=== PATIENT | female | born 1945 | race Caucasian/White ===

== ENCOUNTER → 2016-05-03 | Outpatient (CLI) | payer MEDICARE, OTHER | LOC: CLAB 11:29 | PROVIDERS: ATTEND Psychiatry & Neurology Psychiatry | DX: F31.9 Bipolar disorder, unspecified (principal); Z79.899 Other long term (current) drug therapy | CPT/HCPCS: 36415; 80164 ==

== ENCOUNTER → 2016-07-27 | Outpatient (CLI) | payer MEDICARE, OTHER ==
[2016-07-27 11:36] LABS: AUTOMATED NEUTROPHIL # 5.9 TH/MM3 (1.8-7.7); BASOPHIL # 0.1 TH/MM3 (0-0.2); EOSINOPHIL # 0.1 TH/MM3 (0-0.4); EOSINOPHIL % 0.6 % (0.0-4.0); HEMATOCRIT 42.8 % (35.0-46.0); HEMO FLAGS DIFF FINAL; LYMPH % 29.8 % (9.0-44.0); LYMPHOCYTE # 2.9 TH/MM3 (1.0-4.8); MEAN CELL VOLUME 89.6 FL (80.0-100.0); MEAN CORPUSCULAR HEMOGLOBIN 31.3 PG (27.0-34.0); MEAN CORPUSCULAR HGB CONC 34.9 % (32.0-36.0); MONO % 7.9 % (0.0-8.0); NEUT % 60.7 % (16.0-70.0); PLATELET COUNT 185 TH/MM3 (150-450); RED BLOOD COUNT 4.77 MIL/MM3 (4.00-5.30); RED CELL DISTRIBUTION WIDTH 14.6 % (11.6-17.2); WHITE BLOOD COUNT 9.7 TH/MM3 (4.0-11.0)
[2016-07-27 11:51] LABS: MICRO ALBUMIN RANDOM URINE RAW 7.3 MG/L (0.0-30.0)
[2016-07-27 12:39] LABS: ALKALINE PHOSPHATASE 72 U/L (45-117); ALT (GPT) 32 U/L (10-53); ANION GAP 11 MEQ/L (5-15); AST (GOT) 28 U/L (15-37); BICARBONATE 26.1 MEQ/L (21.0-32.0); BLOOD UREA NITROGEN 10 MG/DL (7-18); CHLORIDE 100 MEQ/L (98-107); GLOMERULAR FILTRATION RATE 57 ML/MIN (>89); GLUCOSE,FASTING 103 MG/DL (74-99); HDL CHOLESTEROL 41.7 MG/DL (40.0-60.0); LDL CHOLESTEROL 147 MG/DL (0-99); POTASSIUM 3.7 MEQ/L (3.5-5.1); SODIUM (NA) 137 MEQ/L (136-145); TOTAL BILIRUBIN ADULT 0.5 MG/DL (0.2-1.0)
== END ==
LOC: CLAB 11:07
PROVIDERS: ATTEND Internal Medicine
DX: E03.9 Hypothyroidism, unspecified (principal); I10 Essential (primary) hypertension
CPT/HCPCS: 36415; 80053; 80061; 80164; 82043; 84443; 85025

== ENCOUNTER → 2016-12-27 | Outpatient (CLI) | payer MEDICARE, OTHER ==
[2016-12-27 11:31] LABS: AUTOMATED NEUTROPHIL # 4.3 TH/MM3 (1.8-7.7); BASOPHIL # 0.1 TH/MM3 (0-0.2); BASOPHIL % 0.8 % (0.0-2.0); EOSINOPHIL % 0.4 % (0.0-4.0); HEMATOCRIT 41.5 % (35.0-46.0); HEMO FLAGS DIFF FINAL; LYMPH % 33.5 % (9.0-44.0); LYMPHOCYTE # 2.7 TH/MM3 (1.0-4.8); MEAN CELL VOLUME 91.8 FL (80.0-100.0); MEAN CORPUSCULAR HEMOGLOBIN 31.2 PG (27.0-34.0); MONO % 11.1 % (0.0-8.0); NEUT % 54.2 % (16.0-70.0); PLATELET COUNT 146 TH/MM3 (150-450); RED BLOOD COUNT 4.52 MIL/MM3 (4.00-5.30); RED CELL DISTRIBUTION WIDTH 15.3 % (11.6-17.2)
[2016-12-27 12:05] LABS: ALT (GPT) 30 U/L (10-53); ANION GAP 6 MEQ/L (5-15); AST (GOT) 32 U/L (15-37); BICARBONATE 27.7 MEQ/L (21.0-32.0); BLOOD UREA NITROGEN 19 MG/DL (7-18); CHLORIDE 104 MEQ/L (98-107); GLOMERULAR FILTRATION RATE 48 ML/MIN (>89); GLUCOSE,FASTING 105 MG/DL (74-99); POTASSIUM 3.3 MEQ/L (3.5-5.1); SODIUM (NA) 138 MEQ/L (136-145)
[2016-12-27 12:14] LABS: ALKALINE PHOSPHATASE 73 U/L (45-117); FREE T3 1.99 PG/ML (2.18-3.98); FREE T4 1.39 NG/DL (0.76-1.46); TOTAL BILIRUBIN ADULT 0.7 MG/DL (0.2-1.0)
[2016-12-27 16:18] LABS: HEMOGLOBIN A1a 1.4 %; HEMOGLOBIN A1b 0.8 %; HEMOGLOBIN Ao 83.4 %; HEMOGLOBIN F 2.7 %; HEMOGLOBIN LA1C 2.1 %; HEMOGLOBIN P3 3.6 %
== END ==
LOC: CLAB 11:03
PROVIDERS: ATTEND Internal Medicine
DX: E11.9 Type 2 diabetes mellitus without complications (principal); E03.9 Hypothyroidism, unspecified; F31.9 Bipolar disorder, unspecified
CPT/HCPCS: 36415; 80053; 80164; 82306; 83036; 84439; 84443; 84481; 85025

== ENCOUNTER 2017-05-02 13:35 | Inpatient (IN) | payer MEDICARE, OTHER ==
[~2017-05-02] VITALS: Ht 165.1 cm; Wt 75.0 kg
[2017-05-02 13:40] VITALS: BP 174/78; PULSE 96; RESP 16; TEMP 97.9; O2SAT 96
[2017-05-02] MEDS ORDERED: VERA300C PO (13:48)
[2017-05-02] MEDS ORDERED: RISP3TAB2 PO (13:48)
[2017-05-02] MEDS ORDERED: SYMB80AE INH (13:48)
[2017-05-02] MEDS ORDERED: LEVO112T2 PO (13:48)
[2017-05-02] MEDS ORDERED: LOSA50TA2 PO (13:48)
--- NOTE | 2017-05-02 13:53 | PD ---
HPI Chief Complaint: Fall Time Seen by Provider: 13:38 Travel History International Travel<30 days: No Contact w/Intl Traveler<30days: No Traveled to known affect area: No History of Present Illness HPI 71-year-old female that presents to the ED for evaluation of right hip injury. Per patient she fell about a week ago not right hip and she would have some pain but was able to ambulate. Today she had another mechanical fall and landed on her hip and she could not get up without severe pain. She denies any prior injuries. Per patient she had a mechanical fall and no syncope. No head injury. No blood thinners. Normal leg pain. No back pain. It is mostly to the right hip and upper leg. Per patient the pain gets to be 9 out of 10 with weightbearing. Otherwise minimal discomfort. Allergy to penicillin. Has not seen anybody for this. Was brought here by ambulance. PFSH Past Medical History Bipolar Disorder: Yes COPD: Yes Hypertension: Yes Immunizations Current: Yes Thyroid Disease: Yes Influenza Vaccination: Yes ?: Not Past Surgical History Hysterectomy: Yes Social History Alcohol Use: No Tobacco Use: Yes (1 PPD) Substance Use: No Allergies-Medications (Allergen,Severity, Reaction): Coded Allergies: Penicillins (Verified Allergy, Unknown, 05/02/17) Reported Meds & Prescriptions Reported Meds & Active Scripts Active Reported Symbicort Inh (Budesonide/Formoterol Fumarate) 80-4.5 Mcg/Act Aero 2 Puff INH Q12HR Losartan-Hydrochlorothiazide 50-12.5 Mg Tab 1 Tab PO DAILY Levothyroxine (Levothyroxine Sodium) 112 Mcg Tab 112 Mcg PO DAILY Verapamil ER 24 HR (Verapamil HCl) 300 Mg Cap 300 Mg PO DAILY Risperidone 3 Mg Tab 3 Mg PO HS Review of Systems Except as stated in HPI: all other systems reviewed are Neg Physical Exam Narrative GENERAL: SKIN: Warm and dry. HEAD: Atraumatic. Normocephalic. EYES: Pupils equal and round. No scleral icterus. No injection or drainage. ENT: No nasal bleeding or discharge. Mucous membranes pink and moist. Tongue is midline. No uvula deviation. NECK: Trachea midline. No JVD. CARDIOVASCULAR: Regular rate and rhythm. No murmurs, S3, S4. RESPIRATORY: No accessory muscle use. Clear to auscultation. Breath sounds equal bilaterally. GASTROINTESTINAL: Abdomen soft, non-tender, nondistended. Hepatic and splenic margins not palpable. MUSCULOSKELETAL: Extremities without clubbing, cyanosis, or edema. No obvious deformities. Full range of motion of the right and left lower extremities with exception for right hip for which she has pain with extension and flexion. No obvious bony deformity noted. 2+ pulses bilaterally. Neurovascular intact. NEUROLOGICAL: Awake and alert. No obvious cranial nerve deficits. Motor grossly within normal limits. Five out of 5 muscle strength in the arms and legs. Normal speech. PSYCHIATRIC: Appropriate mood and affect; insight and judgment normal. Data Data Last Documented VS Vital Signs Date Time Temp Pulse Resp B/P (MAP) Pulse Ox O2 Delivery O2 Flow Rate FiO2 05/02/17 13:40 97.9 96 16 174/78 (110) 96 Orders Orders Femur (Ap & Lat/2vws) (05/02/17 ) Hip, Uni(Ap&Lat) W Ap Pelvis (05/02/17 ) Chest, Single Ap (05/02/17 ) Electrocardiogram (05/02/17 14:03) Complete Blood Count With Diff (05/02/17 14:03) Basic Metabolic Panel (Bmp) (05/02/17 14:03) Prothrombin Time / Inr (Pt) (05/02/17 14:03) Act Partial Throm Time (Ptt) (05/02/17 14:03) Urinalysis - C+S If Indicated (05/02/17 14:03) Magnesium (Mg) (05/02/17 14:03) Iv Access Insert/Monitor (05/02/17 14:03) Admit Order (Ed Use Only) (05/02/17 14:56) Labs Laboratory Tests Test 05/02/17 14:30 05/02/17 14:40 White Blood Count 12.4 TH/MM3 Red Blood Count 4.84 MIL/MM3 Hemoglobin 14.4 GM/DL Hematocrit 42.7 % Mean Corpuscular Volume 88.2 FL Mean Corpuscular Hemoglobin 29.6 PG Mean Corpuscular Hemoglobin Concent 33.6 % Red Cell Distribution Width 13.5 % Platelet Count 216 TH/MM3 Mean Platelet Volume 8.6 FL Neutrophils (%) (Auto) 76.2 % Lymphocytes (%) (Auto) 16.0 % Monocytes (%) (Auto) 3.6 % Eosinophils (%) (Auto) 0.2 % Basophils (%) (Auto) 4.0 % Neutrophils # (Auto) 9.5 TH/MM3 Lymphocytes # (Auto) 2.0 TH/MM3 Monocytes # (Auto) 0.4 TH/MM3 Eosinophils # (Auto) 0.0 TH/MM3 Basophils # (Auto) 0.5 TH/MM3 CBC Comment DIFF FINAL Differential Comment Prothrombin Time 9.5 SEC Prothromb Time International Ratio 0.9 RATIO Activated Partial Thromboplast Time 23.3 SEC Blood Urea Nitrogen 21 MG/DL Creatinine 0.98 MG/DL Random Glucose 139 MG/DL Calcium Level 9.6 MG/DL Magnesium Level 2.1 MG/DL Sodium Level 137 MEQ/L Potassium Level 3.7 MEQ/L Chloride Level 105 MEQ/L Carbon Dioxide Level 25.2 MEQ/L Anion Gap 7 MEQ/L Estimat Glomerular Filtration Rate 56 ML/MIN Urine Collection Type CLEAN CATCH Urine Color YELLOW Urine Turbidity CLEAR Urine pH 6.0 Urine Specific [place] 1.008 Urine Protein NEG mg/dL Urine Glucose (UA) NEG mg/dL Urine Ketones NEG mg/dL Urine Occult Blood NEG Urine Nitrite NEG Urine Bilirubin NEG Urine Leukocyte Esterase NEG Urine Squamous Epithelial Cells 6-8 /hpf Urine Amorphous Sediment FEW Urine Bacteria RARE /hpf Microscopic Urinalysis Comment CULT NOT INDICATED MDM Medical Decision Making Medical Screen Exam Complete: Yes Emergency Medical Condition: Yes Medical Record Reviewed: Yes Interpretation(s) CBC & BMP Diagram 05/02/17 14:30 Calcium Level 9.6, Magnesium Level 2.1 Last Impressions Hip and Pelvis X-Ray 05/02/17 0000 Signed Impressions: Service Date/Time: May 13:40 - CONCLUSION: Right subcapital hip fracture. Sarthak Ward MD Femur X-Ray 05/02/17 0000 Signed Impressions: Service Date/Time: May 13:40 - CONCLUSION: Right subcapital hip fracture.. Sarthak Ward MD Chest X-Ray 05/02/17 0000 Signed Impressions: Service Date/Time: May 14:11 - CONCLUSION: No acute disease. Efraín Hodges MD EKG shows sinus rhythm with no sign of acute ischemia or arrhythmia read by me and attending. Differential Diagnosis Fracture versus sprain versus strain versus bruise versus contusion Narrative Course 71-year-old female that presents to the ED for evaluation of injury to the right hip. Patient was properly examined and was found to have signs and symptoms concerning for bony injuries. X-rays were ordered. X-rays show fracture of the right hip. Case was discussed with Dr. Valencia from orthopedics who wants the patient to be transferred to the [facility] for surgery possible tonight. Nothing by mouth and admission to medical team. Case was discussed with Is doctor Dr. Cormier who agrees to admission. Patient was made aware of all findings and agrees with plan. Patient was admitted to the [facility]. Diagnosis Primary Impression: Hip fracture, right Qualified Codes: S72.001A - Fracture of unspecified part of neck of right femur, initial encounter for closed fracture Admitting Information Admitting Physician Requests: it Walter Valencia May 02, 2017 13:53
--- NOTE | 2017-05-02 14:06 | RADRPT ---
EXAM DATE/TIME: 05/02/2017 13:40 [facility] COMPARISON: No previous studies available for comparison. INDICATIONS : Fall, right hip pain. MEDICAL HISTORY : None. SURGICAL HISTORY : None. ENCOUNTER: Initial ACUITY: 1 week PAIN SCORE: 6/10 LOCATION: Right hip FINDINGS: AP and lateral views of the right femur were obtained and demonstrate a subcapital hip fracture. The mid and distal femur are intact. There is diffuse osteopenia. No focal soft tissue abnormality is kip ntified. CONCLUSION: Right subcapital hip fracture.. Sarthak Ward MD on May 02, 2017 at 14:02 Board Certified Radiologist. This report was verified electronically.
--- NOTE | 2017-05-02 14:17 | RADRPT ---
EXAM DATE/TIME: 05/02/2017 13:40 [facility] COMPARISON: FEMUR RIGHT (AP & LAT/2VWS), May 02, 2017, 13:40. INDICATIONS : Fall, right hip pain. MEDICAL HISTORY : None. SURGICAL HISTORY : None. ENCOUNTER: Initial ACUITY: 1 week PAIN SCORE: 6/10 LOCATION: Right hip FINDINGS: AP and crosstable lateral views of the left hip were obtained as well as an AP view the pelvis. This again demonstrates a subcapital right hip fracture with mild clockwise rotation of the head component and superior migration of the femur. There is diffuse osteopenia. The pubic rami are intact. No foca l soft tissue abnormalities identified radiographically. CONCLUSION: Right subcapital hip fracture. Sarthak Ward MD on May 02, 2017 at 14:13 Board Certified Radiologist. This report was verified electronically.
--- NOTE | 2017-05-02 14:25 | RADRPT ---
EXAM DATE/TIME: 05/02/2017 14:11 [facility] COMPARISON: No previous studies available for comparison. INDICATIONS : Fall, right hip pain. MEDICAL HISTORY : None. SURGICAL HISTORY : None. ENCOUNTER: Initial ACUITY: 3 days PAIN SCORE: 0/10 LOCATION: Bilateral chest FINDINGS: A single view of the chest demonstrates the lungs to be symmetrically aerated without evidence of mas s, infiltrate or effusion. The cardiomediastinal contours are unremarkable. Osseous structures are intact. CONCLUSION: No acute disease. Efraín Hodges MD on May 02, 2017 at 14:22 Board Certified Radiologist. This report was verified electronically.
[2017-05-02 14:44] LABS: AUTOMATED NEUTROPHIL # 9.5 TH/MM3 (1.8-7.7); BASOPHIL # 0.5 TH/MM3 (0-0.2); EOSINOPHIL % 0.2 % (0.0-4.0); HEMATOCRIT 42.7 % (35.0-46.0); HEMOGLOBIN 14.4 GM/DL (11.6-15.3); MEAN CELL VOLUME 88.2 FL (80.0-100.0); MEAN CORPUSCULAR HEMOGLOBIN 29.6 PG (27.0-34.0); MEAN CORPUSCULAR HGB CONC 33.6 % (32.0-36.0); MEAN PLATELET VOLUME 8.6 FL (7.0-11.0); MONO % 3.6 % (0.0-8.0); MONOCYTE # 0.4 TH/MM3 (0-0.9); NEUT % 76.2 % (16.0-70.0); PLATELET COUNT 216 TH/MM3 (150-450); RED BLOOD COUNT 4.84 MIL/MM3 (4.00-5.30); RED CELL DISTRIBUTION WIDTH 13.5 % (11.6-17.2); WHITE BLOOD COUNT 12.4 TH/MM3 (4.0-11.0)
[2017-05-02 14:49] LABS: CALCIUM 9.6 MG/DL (8.5-10.1)
[2017-05-02 14:50] LABS: BICARBONATE 25.2 MEQ/L (21.0-32.0); MAGNESIUM 2.1 MG/DL (1.5-2.5)
[2017-05-02 14:52] LABS: INTERNATIONAL NORMALIZED RATIO 0.9 RATIO; PROTHROMBIN TIME - PATIENT 9.5 SEC (9.8-11.6)
[2017-05-02 14:53] LABS: CREATININE 0.98 MG/DL (0.50-1.00)
[2017-05-02 14:57] LABS: BILIRUBIN, URINE NEG (NEG); BLOOD, URINE NEG (NEG); GLUCOSE,URINE NEG (NEG); KETONE, URINE NEG (NEG); NITRITE,URINE NEG (NEG); URINE LEUKOCYTE ESTERASE NEG (NEG)
[2017-05-02 15:09] VITALS: BP 119/59; PULSE 88; RESP 16; O2SAT 96
[2017-05-02] MEDS ORDERED: NALOXONE HCL 0.4 MG/ML AMP IV PUSH PRN (15:15)
[2017-05-02] MEDS ORDERED: SODIUM CHLORIDE 0.9% FLUSH 10 ML FLUSH IV FLUSH PRN (15:15)
[2017-05-02 15:16] LABS: BACTERIA, URINE RARE /hpf; URINE COLOR YELLOW (YELLW/STRAW)
[2017-05-02 15:17] LABS: AMORPHOUS SEDIMENT, URINE FEW
[2017-05-02] MEDS: SODIUM CHLOR 0.9% 1000 ML INJ 1,000 ML IV SCH (16:00)
[2017-05-02] MEDS ORDERED: ONDANSETRON HCL 4 MG/2 ML VIAL IVP PRN (16:00)
[2017-05-02] MEDS ORDERED: ACETAMINOPHEN 325 MG TAB PO PRN (16:00)
[2017-05-02] MEDS ORDERED: SENNOSIDES 8.6 MG TAB PO PRN (16:00)
[2017-05-02 16:40] VITALS: BP 136/59; PULSE 81; RESP 16; O2SAT 96
[2017-05-02 17:48] VITALS: BP 128/61
[2017-05-02 19:55] VITALS: BP 120/57; PULSE 74; RESP 18; TEMP 97.4; O2SAT 96
[2017-05-02] MEDS: SODIUM CHLORIDE 0.9% FLUSH 10 ML FLUSH IV FLUSH SCH ×2 (21:00→21:42)
[2017-05-02] MEDS ORDERED: risperiDONE 0.25 MG TAB PO ONE (22:45)
[2017-05-02] MEDS ORDERED: risperiDONE 3 MG TAB PO SCH (23:00)
[2017-05-02] MEDS ORDERED: risperiDONE 3 MG TAB PO ONE (23:15)
[2017-05-02 23:24] VITALS: BP 122/58; PULSE 77; RESP 18; TEMP 98.1; O2SAT 98
[2017-05-03] MEDS: SODIUM CHLOR 0.9% 1000 ML INJ 1,000 ML IV SCH ×3 (02:00→22:00)
[2017-05-03] MEDS ORDERED: LACTATED RINGER'S 1000 ML IV PRN (02:15)
[2017-05-03] MEDS ORDERED: SODIUM CHLORID 0.9% 500 ML IV PRN (02:15)
[2017-05-03] MEDS ORDERED: METOPROLOL TARTRATE 25 MG TAB PO PRN (02:15)
[2017-05-03] MEDS ORDERED: POVIDONE IODINE 5% (ANTISEPSIS KIT) 4 APPLICATIONS EACH NARE PRN (02:15)
[2017-05-03] MEDS ORDERED: CHLORHEXIDINE GLUCONATE 2 % 1 PACK (2 CLOTHS) TOPICAL PRN (02:15)
[2017-05-03] MEDS: LEVOTHYROXINE SODIUM 112 MCG TAB PO SCH (04:53)
[2017-05-03 05:37] VITALS: BP 118/67; PULSE 82; RESP 18; TEMP 96.7; O2SAT 95
[2017-05-03 08:00] VITALS: BP 130/58; PULSE 84; RESP 18; TEMP 96; O2SAT 93
[2017-05-03] MEDS: LOSARTAN 50 MG TAB PO SCH (08:45)
[2017-05-03] MEDS: VERAPAMIL HCL 120 MG SUSTAINED RELEASE TAB PO SCH (08:45)
[2017-05-03] MEDS: VERAPAMIL HCL 180 MG SUSTAINED RELEASE TAB PO SCH (08:45)
[2017-05-03] MEDS: SODIUM CHLORIDE 0.9% FLUSH 10 ML FLUSH IV FLUSH SCH ×2 (08:46→20:52)
[2017-05-03] MEDS: BUDESONIDE-FORMOTEROL 80/4.5 MCG INHALER INH SCH ×2 (08:54→20:52)
[2017-05-03] MEDS: HYDROCHLOROTHIAZIDE 12.5 MG CAP PO SCH (08:54)
[2017-05-03] MEDS ORDERED: NON-FORMULARY DRUG (Losartan-Hydrochlorothiazide 1 TAB) PO SCH (09:00)
[2017-05-03] MEDS ORDERED: TRANEXAMIC ACID INJ 1,125 MG in SODIUM CHLORIDE 0.9% INJ 100 ML IV SCH (10:00)
[2017-05-03] MEDS ORDERED: VANCOMYCIN HCL 1000 MG VIAL ONE (10:46)
[2017-05-03] MEDS ORDERED: ceFAZolin 2 GM PREMIX 50 ML ONE (10:46)
[2017-05-03] MEDS ORDERED: CLINDAMYCIN PHOS 600 MG/4 ML VIAL ONE (10:46)
[2017-05-03] MEDS ORDERED: fentaNYL CITRATE 250 MCG/5 ML AMP ONE (11:57)
[2017-05-03] MEDS ORDERED: LIDOCAINE HCL 1% PF 5 ML SYRINGE OTHER ONE (12:00)
[2017-05-03] MEDS ORDERED: ROCURONIUM INJ 50 MG/5 ML SYRINGE IV PUSH ONE (12:00)
[2017-05-03] MEDS ORDERED: LACTATED RINGER'S 1000 ML INJ 1,000 ML IV ONE (12:00)
[2017-05-03] MEDS ORDERED: PROPOFOL 200 MG/20 ML AMP IV ONE (12:00)
[2017-05-03] MEDS ORDERED: EPINEPHrine HCL (1:1000) 1 MG/ML VIAL IV ONE (12:00)
[2017-05-03] MEDS ORDERED: SUGAMMADEX SODIUM 200 MG/2 ML VIAL IV PUSH ONE (12:00)
[2017-05-03] MEDS ORDERED: ePHEDrine/NS 25 MG/5 ML SYRINGE IV ONE (12:00)
[2017-05-03] MEDS ORDERED: NALOXONE HCL 0.4 MG/ML AMP IV ONE (12:00)
[2017-05-03] MEDS ORDERED: STERILE WATER FOR INJECTION 20 ML VIAL IV ONE (12:00)
[2017-05-03] MEDS ORDERED: ONDANSETRON HCL 4 MG/2 ML VIAL IV ONE (12:00)
[2017-05-03] MEDS ORDERED: PHENYLEPH/NS 1000 MCG/10 ML SYR IV ONE (12:00)
[2017-05-03] MEDS ORDERED: ACETAMINOPHEN/HYDROcodone 325 MG/7.5 MG TAB PO PRN (12:15)
[2017-05-03] MEDS ORDERED: MORPHINE SULFATE 4 MG/ML INJ IV PUSH PRN (12:15)
[2017-05-03] MEDS ORDERED: VASOPRESSIN 20 UNITS/ML VIAL ONE (12:27)
[2017-05-03] MEDS ORDERED: ERGOCALCIFEROL (VIT D2) 50,000 UNIT CAP PO ONE (12:30)
--- NOTE | 2017-05-03 12:41 | MB ---
cc: ESTEVAN TEMPLE DATE OF CONSULTATION 05/03/2017 REASON FOR CONSULTATION Displaced right femoral neck fracture. HISTORY OF PRESENT ILLNESS Taran is a 71-year-old female. She had a mechanical fall yesterday. She landed on her right side. She had immediate right hip pain. She had no dizziness, syncope or loss of consciousness. She was unable to stand or ambulate. She presented to the emergency room where x-rays revealed a displaced right femoral neck fracture. She is currently awake and alert on the orthopedic floor. Her only complaint is her right hip. Pain is worse with movement and is improved with rest. She denies dizziness, syncope or loss of consciousness. PAST MEDICAL HISTORY ILLNESSES 1. Bipolar disorder. 2. COPD. 3. Hypertension. 4. Hypothyroidism. SURGERIES Hysterectomy. ALLERGIES PENICILLIN. MEDICATIONS 1. Symbicort. 2. Hydrochlorothiazide. 3. Levothyroxine. 4. Verapamil. 5. Risperidone. SOCIAL HISTORY The patient denies alcohol or drug use. She smokes a pack a day. FAMILY HISTORY Noncontributory. REVIEW OF SYSTEMS The patient denies headache, visual changes, neck pain, chest pain, shortness of breath, abdominal pain, nausea, vomiting or recent weight loss, fevers or chills, numbness or tingling of extremities, or recent weight loss. She complains of right hip pain. Pain is worse with movement. PHYSICAL EXAMINATION GENERAL: The patient is a pleasant 71-year-old female in no acute distress. She is awake and alert. She is alert and oriented x3. She appears well-developed, well-nourished. VITAL SIGNS: Temperature 96.0, pulse 84, respirations 18, blood pressure 130/58. O2 sat is 92% on room air. HEAD: The patient is normocephalic. Pupils are equal. NECK: Soft, nontender. Trachea is midline. ABDOMEN: Soft, nontender, nondistended. EXTREMITIES: Examination of bilateral upper extremities reveals no pain with shoulder, elbow or wrist motion bilaterally. She has intact sensation in all fingers bilaterally. She has good capillary refill in all fingers. Radial pulses are palpable. Quill Buncher And Sorter strength is +5 bilaterally. Examination of left leg reveals no pain with hip, knee or ankle motion. Skin is intact. Dorsalis pedis pulse is palpable. Sensation is intact. Examination of right leg reveals pain with any hip motion. She is tender to palpation around the proximal femur. She has no tenderness around her knee, tibia or ankle. Calf and thigh compartments are soft. Dorsalis pedis pulse is palpable. Sensation is intact to the right foot. X-RAYS X-rays of the right femur and right hip were reviewed. X-rays reveal a displaced right femoral neck fracture. The patient does appear to have diffuse osteopenia. The pelvic ring is intact. LABORATORY The patient has a white blood cell count of 12.4, hemoglobin 14.4 and hematocrit of 42.7. INR is 0.9. BUN is 21 and creatinine is 0.98. IMPRESSION 1. Hypertension. 2. History of bipolar disorder. 3. Possible osteoporosis. 4. Right femoral neck fracture. PLAN The treatment options were discussed with the patient. At this point I would recommend right hip hemiarthroplasty. X-rays and lab results were reviewed. I will plan on surgery today. Risks of surgery include bleeding, infection, injuries to arteries, nerves and blood vessels, hip dislocation, leg length discrepancy, groin pain, as well as medical complications including blood clot, stroke, heart attack and were discussed. All questions were answered. I will plan on surgery today. A mid-level provider in my office, nurse practitioner or PA, may see this patient on a follow-up basis and continue to implement the objective of this plan including: Starting or adjusting medications, injections of muscle, tendon, bursa or joints, cast application, orthotic or brace application, physical therapy, further radiographic studies including x-ray, MRI, CT, ultrasounds or bone scan, vascular studies, neurologic studies, or other specialist consultations, and proceeding with surgical management as appropriate. MD SUKH Flores/CAMILLE /12:17 PM /12:25 PM
[2017-05-03] MEDS ORDERED: CALCTAB19 PO (12:58)
[2017-05-03] MEDS ORDERED: XARE10TA PO (12:58)
[2017-05-03] MEDS ORDERED: VITA2000 PO (12:58)
[2017-05-03] MEDS ORDERED: WALKER/ADULT/FO1 MIS (12:58)
[2017-05-03] MEDS ORDERED: VITA500012 PO (12:58)
[2017-05-03] MEDS ORDERED: HYDR-3583 PO (12:58)
--- NOTE | 2017-05-03 12:59 | PD.OP ---
cc: Fabricio Rob MD Operative Report Date of Surgery: May 03, 2017 Preoperative Diagnosis: Displaced right femoral neck fracture Postoperative Diagnosis: Procedure: Right hip bipolar hemiarthroplasty Anesthesia: Gen. Surgeon: Fabricio Rob Hvac Services Professional(s): ASHLEY Fontaine PA-C The surgical procedure was assisted by my physician web marketing assistant. My P.A. presence was necessary throughout this case for the manipulation and positioning of the surgical extremity. My P.A. was assisting me throughout the duration of this procedure. The skill set of a physician web marketing assistant was medically necessary to complete this procedure. During the surgical case the plumbing service technician was working at the back table and the physician web marketing assistant was directly assisting me. Operation and Findings: PLAN OF ACTIVITY Weight bear as tolerated. IMPLANTS USED DePuy Corail size [11] stem with size [44] bipolar head and [+1] neck. DRAIN: 7 mm Dick-Pierce drain DETAILS OF PROCEDURE This patient was brought into the operating room and placed on the OR table. The patient was given anesthesia. The patient received IV antibiotics. The patient was then placed in lateral decubitus position. The hip and leg were prepped with alcohol, followed by Hibiclens and draped in a usual sterile fashion. Clean air was used for this procedure. Time out procedure was performed. The procedure began with a 5 inch incision over the posterolateral hip. The subcutaneous tissue was dissected with the Bovie. The iliotibial band were split in line with fibers. The Charnley retractor was placed. The piriformis and external rotators were released from the femur and tagged with a #1 Vicryl suture. The capsule is now incised and tagged with #1 Vicryl. The femoral neck fracture was now visualized. A corkscrew was now used to remove the femoral head. The femoral head was sized and measured. Soft tissue was now protected. The hip skid was placed underneath the femoral neck. An oscillating saw was used to make a femoral neck cut. At this point attention was turned to preparation of the proximal femur. A box osteotome was used to remove the lateral cortex of the femoral neck. The T- handle reamer was used to open the femoral canal. Next, the canal was broached. A lateralizing reamer was used to help lateralize the prosthesis. At this point a trial head and neck were placed. The hip was reduced. The patient was found to have excellent stability with good range of motion. Trial components were removed. Soft tissue and bone were thoroughly irrigated. A Corail stem was now opened. The stem was now impacted into the proximal femur. Care was taken to keep appropriate anteversion. The head and neck were now impacted onto the stem. The hip was again reduced. The hip was found to have good range of motion and good stability. Leg lengths were clinically equal. The wound was thoroughly irrigated. The capsule, piriformis and iliotibial band were closed with #1 Vicryl. Subcutaneous tissue was closed with 3-0 Vicryl. The skin was closed with rosalee. A sterile dressing was applied with Primapore. The patient was placed into a knee immobilizer. The patient was awakened and transferred to the recovery room in stable condition. Needle and sponge counts were correct. Fabricio Rob MD May 03, 2017 12:59
[2017-05-03] MEDS ORDERED: Post-op Orders (for Pharmacy) XX ONE (13:00)
--- NOTE | 2017-05-03 13:00 | PD.ORT.PN ---
Subjective Subjective Remarks POD 0 s/p right hip hemiarthroplasty doing well. stable in PACU Objective Vitals Vital Signs Date Time Temp Pulse Resp B/P (MAP) Pulse Ox O2 Delivery O2 Flow Rate FiO2 05/03/17 08:00 96.0 84 18 130/58 (82) 93 05/03/17 05:37 96.7 82 18 118/67 (84) 95 05/02/17 23:24 98.1 77 18 122/58 (79) 98 05/02/17 19:55 97.4 74 18 120/57 (78) 96 05/02/17 17:48 79 16 128/61 (83) 96 21 05/02/17 16:40 81 16 136/59 (84) 96 Room Air 05/02/17 15:09 88 16 119/59 (79) 96 Room Air 05/02/17 13:40 97.9 96 16 174/78 (110) 96 I/O 05/02/17 05/02/17 05/02/17 05/03/17 05/03/17 05/03/17 07:00 15:00 23:00 07:00 15:00 23:00 Intake Total 480 ml 0 ml Output Total 250 ml 875 ml Balance -250 ml -395 ml 0 ml Intake Oral 480 ml 0 ml Output Urine Total 250 ml 875 ml # Voids 1 6 4 # Bowel Movements 0 0 Result Diagram: 05/02/17 1430 05/02/17 1430 Other Results Laboratory Tests Test 05/02/17 14:30 Prothromb Time International Ratio 0.9 RATIO Prothrombin Time 9.5 SEC (9.8-11.6) Objective Remarks RLE: dressings clean and dry. intact. +CKS Assessment & Plan Assessment and Plan 1) Right Hip Hemiarthroplasty - POD 0 -WBAT -posterior hip precautions -CKS while in bed -Daily dressing changes POD 2 with primapore -CM for SNF placement -ortho cleared for DC when stable and DC arrangements made -f/u with [facility] or [facility] in 2 weeks Ervin Valdez/Data Processing Specialist [facility] May 03, 2017 13:00
[2017-05-03] MEDS ORDERED: DO NOT ADM ANY ANTICOAGULANT DRUGS PRN (13:34)
[2017-05-03] MEDS ORDERED: *RESP: ALBUTEROL 2.5 MG/3 ML NEB (PRN) PERIprocedural Use ONLY NEB ONE (13:41)
[2017-05-03] MEDS ORDERED: MIDODRINE 5 MG TAB PO ONE (14:45)
[2017-05-03] MEDS ORDERED: MIDODRINE 5 MG TAB PO PRN (14:45)
--- NOTE | 2017-05-03 16:02 | HHI.HP ---
[facility] Service [facility] Primary Care Physician Roxie Nagy M.D. Admission Diagnosis right hip fracture Diagnoses: Travel History International Travel<30 Days: No Contact w/Intl Traveler <30 Da: No Traveled to Known Affected Are: No History of Present Illness Mrs. Masters is a 71 year old female. She came in secondary to a fall which resulted in a right hip fracture. Surgical repair of this hip fractures done today and I'm seeing this patient postop. Underlying medical conditions are COPD, hypertension, hypothyroidism, and bipolar disorder. When seen postop patient is having some problems with low blood pressure. She had her blood pressure medications provided this morning, at that time she did not have hypotension. The hypotension is likely a result of blood pressure medicines in her system combined with anesthesia and pain treatments. Patient is asymptomatic in regards to the hypotension. No other complaints. She does not have any exacerbation of her COPD. Her only previous surgery reported his a hysterectomy. Review of Systems Constitutional: DENIES: Fatigue, Fever, Weight gain, Night Sweats Eyes: DENIES: Blurred vision, Diplopia, Eye inflammation, Eye pain Respiratory: DENIES: Apneas, Cough, Snoring, Wheezing Cardiovascular: DENIES: Chest pain, Palpitations, Syncope Gastrointestinal: DENIES: Abdominal pain, Black stools, Bloody stools, Constipation Musculoskeletal: COMPLAINS OF: Joint pain, Joint Swelling, DENIES: Muscle aches , Stiffness Integumentary: DENIES: Abnormal pigmentation, Pruritus, Rash Hematologic/lymphatic: DENIES: Bruising, Lymphadenopathy Immunologic/allergic: DENIES: Eczema, Urticaria Neurologic: DENIES: Abnormal gait, Headache, Paresthesias Psychiatric: DENIES: Anxiety, Confusion, Hallucinations Past Family Social History Past Medical History COPD Hypertension Hypothyroidism Bipolar disorder Past Surgical History Hysterectomy Reported Medications Reported Meds & Active Scripts Active Calcium 600+D 200 (Calcium Carbonate-Vitamin D) 600-200 Mg-Unit Tab 1 Tab PO BID 30 Days Vitamin D3 (Cholecalciferol) 2,000 Unit Cap 2,000 Units PO DAILY Ergocalciferol 50,000 Unit Cap 50,000 Units PO Q7D Xarelto (Rivaroxaban) 10 Mg Tab 10 Mg PO DAILY 14 Days Hydrocodone-Acetaminophen 10-325 mg Tab 1 Tab PO Q4H PRN Reported Symbicort Inh (Budesonide/Formoterol Fumarate) 80-4.5 Mcg/Act Aero 2 Puff INH Q12HR Losartan-Hydrochlorothiazide 50-12.5 Mg Tab 1 Tab PO DAILY Levothyroxine (Levothyroxine Sodium) 112 Mcg Tab 112 Mcg PO DAILY Verapamil ER 24 HR (Verapamil HCl) 300 Mg Cap 300 Mg PO DAILY Risperidone 3 Mg Tab 3 Mg PO HS Allergies: Coded Allergies: Penicillins (Verified Allergy, Unknown, 05/02/17) Active Ordered Medications Administered Medications Medications (Trade) Dose Ordered Sig/Peng Route PRN Reason Start Time Stop Time Status Last Admin Dose Admin Sodium Chloride 1,000 ml @ 100 mls/hr Q10H IV 05/02/17 16:00 05/02/17 16:00 Sodium Chloride (NS Flush) 2 ml BID IV FLUSH 05/02/17 21:00 05/03/17 08:46 Budesonide/ Formoterol Fumarate (Symbicort 80-4.5 Mcg Inh) 2 puff Q12HR INH 05/03/17 09:00 05/03/17 08:54 Levothyroxine Sodium (Synthroid) 112 mcg DAILY@0600 PO 05/03/17 06:00 05/03/17 04:53 Verapamil HCl (Isoptin Sr) 120 mg DAILY PO 05/03/17 09:00 05/03/17 08:45 Verapamil HCl (Isoptin Sr) 180 mg DAILY PO 05/03/17 09:00 05/03/17 08:45 Losartan Potassium (Cozaar) 50 mg DAILY PO 05/03/17 09:00 05/03/17 08:45 Lactated Ringer's 1,000 ml @ 30 mls/hr Q24H PRN IV SEE LABEL COMMENTS 05/03/17 02:15 05/06/17 02:14 05/03/17 04:57 Tranexamic Acid 1125 mg/Sodium Chloride 111.25 ml @ 200 mls/ hr ONCE IV 05/03/17 10:00 05/03/17 16:00 05/03/17 12:20 Family History Uterine cancer in mother Social History Patient smokes 1 pack per day Alcohol abuse No illicit drug abuse Physical Exam Vital Signs Vital Signs Date Time Temp Pulse Resp B/P (MAP) Pulse Ox O2 Delivery O2 Flow Rate FiO2 05/03/17 15:30 97.6 65 18 123/90 (101) 96 Nasal Cannula 3 05/03/17 15:15 64 18 79/56 (64) 93 Nasal Cannula 3 05/03/17 15:00 62 18 81/43 (56) 94 Nasal Cannula 3 05/03/17 14:45 70 20 76/42 (53) 95 Nasal Cannula 3 05/03/17 14:30 67 20 73/41 (52) 98 Nasal Cannula 4 05/03/17 14:15 70 22 79/42 (54) 96 Nasal Cannula 4 05/03/17 14:00 65 26 75/37 (50) 96 Aerosol Mask 05/03/17 13:45 69 24 76/41 (53) 92 Aerosol Mask 05/03/17 13:32 97.5 74 26 96/49 (65) 97 Simple Mask 6 05/03/17 08:00 96.0 84 18 130/58 (82) 93 05/03/17 05:37 96.7 82 18 118/67 (84) 95 05/02/17 23:24 98.1 77 18 122/58 (79) 98 05/02/17 19:55 97.4 74 18 120/57 (78) 96 05/02/17 17:48 79 16 128/61 (83) 96 21 05/02/17 16:40 81 16 136/59 (84) 96 Room Air Physical Exam GENERAL: NAD, A&Ox3 HEAD: Normocephalic. NECK: Supple, trachea midline. No lymphadenopathy. EYES: No scleral icterus. No injection or drainage. CARDIOVASCULAR: Regular rate and rhythm without murmurs, gallops, or rubs. RESPIRATORY: Breath sounds equal bilaterally. No accessory muscle use. GASTROINTESTINAL: Abdomen soft, non-tender, nondistended. MUSCULOSKELETAL: No cyanosis, or edema. Limited range of motion of right leg secondary to postop changes in fracture. SKIN: Warm and dry. NEURO: No focal neurological deficitis. Result Diagram: 05/02/17 1430 05/02/17 1430 Caprini VTE Risk Assessment Caprini VTE Risk Assessment: Mod/High Risk (score >= 2) Caprini Risk Assessment Model Point Value = 1 Point Value = 2 Point Value = 3 Point Value = 5 Age 41-60 Minor surgery BMI > 25 kg/m2 Swollen legs Varicose veins or History of unexplained or recurrent spontaneous Oral contraceptives or hormone replacement Sepsis (< 1 month) Serious lung disease, including pneumonia (< 1 month) Abnormal pulmonary function Acute myocardial infarction Congestive heart failure (< 1 month) History of inflammatory bowel disease Medical patient at bed rest Age 61-74 Arthroscopic surgery Major open surgery (> 45 min) Laparoscopic surgery (> 45 min) Malignancy Confined to bed (> 72 hours) Immobilizing plaster cast Central venous access Age >= 75 History of VTE Family history of VTE Factor V Leiden Prothrombin [id number] Lupus anticoagulant Anticardiolipin antibodies Elevated serum homocysteine Heparin-induced thrombocytopenia Other congenital or acquired thrombophilia Stroke (< 1 month) Elective arthroplasty Hip, pelvis, or leg fracture Acute spinal cord injury (< 1 month) Prophylaxis Regimen Total Risk Factor Score Risk Level Prophylaxis Regimen 0-1 Low Early ambulation 2 Moderate Order ONE of the following: *Sequential Compression Device (SCD) *Heparin 5000 units SQ BID 3-4 Higher Order ONE of the following medications: *Heparin 5000 units SQ TID *Enoxaparin/Lovenox 40 mg SQ daily (WT < 150 kg, CrCl > 30 mL/min) *Enoxaparin/Lovenox 30 mg SQ daily (WT < 150 kg, CrCl > 10-29 mL/min) *Enoxaparin/Lovenox 30 mg SQ BID (WT < 150 kg, CrCl > 30 mL/min) AND/OR *Sequential Compression Device (SCD) 5 or more Highest Order ONE of the following medications: *Heparin 5000 units SQ TID (Preferred with Epidurals) *Enoxaparin/Lovenox 40 mg SQ daily (WT < 150 kg, CrCl > 30 mL/min) *Enoxaparin/Lovenox 30 mg SQ daily (WT < 150 kg, CrCl > 10-29 mL/min) *Enoxaparin/Lovenox 30 mg SQ BID (WT < 150 kg, CrCl > 30 mL/min) AND *Sequential Compression Device (SCD) Assessment and Plan Problem List: (1) COPD (chronic obstructive pulmonary disease) ICD Code: J44.9 - Chronic obstructive pulmonary disease, unspecified (2) Hypertension ICD Code: I10 - Essential (primary) hypertension (3) Bipolar disorder ICD Code: F31.9 - Bipolar disorder, unspecified (4) Hypothyroidism ICD Code: E03.9 - Hypothyroidism, unspecified (5) Hip fracture, right ICD Code: S72.001A - Fracture of unspecified part of neck of right femur, initial encounter for closed fracture Status: Acute Assessment and Plan 71-year-old female admitted secondary to right hip fracture Hypotension One-time 10 mg midodrine provided 500 mL bolus of normal saline provided Parameters placed on chronic blood pressure medications Continue midodrine 5 mg every 6 hours as needed for any recurrence of hypotension Status post right hip fracture repair PT Continue pain treatment is needed Orthopedic surgeon following COPD No exacerbation Continue baseline treatments Follow clinically Hypertension Continue baseline treatment Monitor blood pressures Hypothyroidism Follows as an outpatient Continue baseline treatment Bipolar disorder Continue baseline treatment No evidence of exacerbation DVT prophylaxis Per discretion of orthopedic surgeon Physician Certification 2 Midnight Certification Type: Admission for Inpatient Services Order for Inpatient Services The services are ordered in accordance with Medicare regulations or non- Medicare payer requirements, as applicable. In the case of services not specified as inpatient-only, they are appropriately provided as inpatient services in accordance with the 2-midnight benchmark. Estimated LOS (days): 3 days is the estimated time the patient will need to remain in the hospital, assuming treatment plan goals are met and no additional complications. Post-Hospital Plan: Home Problem Qualifiers (1) Hip fracture, right: Qualified Codes: S72.001A - Fracture of unspecified part of neck of right femur , initial encounter for closed fracture Eldon Saavedra MD May 03, 2017 16:02
--- NOTE | 2017-05-03 16:15 | RADRPT ---
EXAM DATE/TIME: 05/03/2017 15:36 [facility] COMPARISON: HIP RIGHT (AP&LAT 2/3VWS) W AP PELVIS, May 02, 2017, 13:40. INDICATIONS : Status post op right hip total arthroplasty. MEDICAL HISTORY : None. SURGICAL HISTORY : None. ENCOUNTER: Initial ACUITY: 1 day PAIN SCORE: Non-responsive. LOCATION: Right Hip FINDINGS: 3 views of the pelvis and right hip reveal a total hip arthroplasty in good position. No fracture. Sm all amount of air within the joint and overlying soft tissues. Surgical clips noted. Mild osteoarthri tis involving the left hip. CONCLUSION: Right hip arthroplasty in good position. Clint Harrell Jr., MD on May 03, 2017 at 16:10 Board Certified Radiologist. This report was verified electronically.
--- NOTE | 2017-05-03 19:50 | EKG ---
Date Performed: 05/02/2017 Time Performed: 14:20:12 PTAGE: 71 years EKG: Sinus rhythm NONSPECIFIC T-WAVE ABNORMALITY BORDERLINE ECG Since the prior tracing, there has been no significant change PREVIOUS TRACING : 07/16/2012 15.01 DOCTOR: Vaibhav Wilkerson Interpretating Date/Time 05/03/2017 19:48:27
[2017-05-03 20:00] VITALS: BP 99/45; PULSE 67; RESP 16; TEMP 96.8; O2SAT 95
[2017-05-03] MEDS: risperiDONE 3 MG TAB PO SCH (20:52)
[2017-05-04] VITALS: BP 106/48; PULSE 72; RESP 17; TEMP 97.4; O2SAT 96
[2017-05-04 04:00] VITALS: BP 107/48; PULSE 73; RESP 18; TEMP 97.3; O2SAT 95
[2017-05-04] MEDS: LEVOTHYROXINE SODIUM 112 MCG TAB PO SCH (05:50)
[2017-05-04 06:10] LABS: AUTOMATED NEUTROPHIL # 7.7 TH/MM3 (1.8-7.7); BASOPHIL % 0.5 % (0.0-2.0); EOSINOPHIL # 0.1 TH/MM3 (0-0.4); EOSINOPHIL % 1.2 % (0.0-4.0); HEMATOCRIT 34.4 % (35.0-46.0); LYMPH % 15.2 % (9.0-44.0); LYMPHOCYTE # 1.5 TH/MM3 (1.0-4.8); MEAN CELL VOLUME 88.8 FL (80.0-100.0); MEAN CORPUSCULAR HGB CONC 34.9 % (32.0-36.0); MEAN PLATELET VOLUME 8.4 FL (7.0-11.0); MONO % 6.2 % (0.0-8.0); MONOCYTE # 0.6 TH/MM3 (0-0.9); NEUT % 76.9 % (16.0-70.0); PLATELET COUNT 183 TH/MM3 (150-450); RED BLOOD COUNT 3.88 MIL/MM3 (4.00-5.30); RED CELL DISTRIBUTION WIDTH 14.2 % (11.6-17.2); WHITE BLOOD COUNT 10.1 TH/MM3 (4.0-11.0)
[2017-05-04 06:40] LABS: ALBUMIN 2.6 GM/DL (3.4-5.0); AST (GOT) 26 U/L (15-37); BICARBONATE 23.4 MEQ/L (21.0-32.0); BLOOD UREA NITROGEN 10 MG/DL (7-18); CALCIUM 8.3 MG/DL (8.5-10.1); CHLORIDE 105 MEQ/L (98-107); CREATININE 0.74 MG/DL (0.50-1.00); GLOMERULAR FILTRATION RATE 78 ML/MIN (>89); GLUCOSE,RANDOM 92 MG/DL (74-106); SODIUM (NA) 136 MEQ/L (136-145)
[2017-05-04 06:44] LABS: ALKALINE PHOSPHATASE 88 U/L (45-117); ALT (GPT) 16 U/L (10-53); TOTAL BILIRUBIN ADULT 0.3 MG/DL (0.2-1.0); TOTAL PROTEIN 5.7 GM/DL (6.4-8.2)
[2017-05-04] MEDS: SODIUM CHLOR 0.9% 1000 ML INJ 1,000 ML IV SCH ×3 (07:46→19:32)
[2017-05-04] MEDS: CHOLECALCIFEROL (VIT D3) 5000 UNIT CAP PO SCH (07:46)
[2017-05-04] MEDS: SODIUM CHLORIDE 0.9% FLUSH 10 ML FLUSH IV FLUSH SCH ×2 (07:46→19:35)
[2017-05-04] MEDS: VERAPAMIL HCL 120 MG SUSTAINED RELEASE TAB PO SCH (07:47)
[2017-05-04] MEDS: LOSARTAN 50 MG TAB PO SCH (07:47)
[2017-05-04] MEDS: HYDROCHLOROTHIAZIDE 12.5 MG CAP PO SCH (07:47)
[2017-05-04] MEDS: VERAPAMIL HCL 180 MG SUSTAINED RELEASE TAB PO SCH (07:48)
[2017-05-04 07:49] VITALS: BP 118/55; PULSE 80; RESP 18; TEMP 97.6; O2SAT 99
[2017-05-04] MEDS: BUDESONIDE-FORMOTEROL 80/4.5 MCG INHALER INH SCH ×2 (07:51→19:34)
--- NOTE | 2017-05-04 10:01 | PD.ORT.PN ---
Subjective Post Op Day #: 1 Subjective Remarks Patient resting in bed in NAD. Patient denies any pain to the right hip. Objective Vitals Vital Signs Date Time Temp Pulse Resp B/P (MAP) Pulse Ox O2 Delivery O2 Flow Rate FiO2 05/04/17 07:49 97.6 80 18 118/55 (76) 99 05/04/17 04:00 97.3 73 18 107/48 (67) 95 05/04/17 00:00 97.4 72 17 106/48 (67) 96 05/03/17 20:00 95 Nasal Cannula 3.00 05/03/17 20:00 96.8 67 16 99/45 (63) 95 05/03/17 15:45 66 18 99/64 (76) 95 Nasal Cannula 3 05/03/17 15:30 97.6 65 18 123/90 (101) 96 Nasal Cannula 3 05/03/17 15:15 64 18 79/56 (64) 93 Nasal Cannula 3 05/03/17 15:00 62 18 81/43 (56) 94 Nasal Cannula 3 05/03/17 14:45 70 20 76/42 (53) 95 Nasal Cannula 3 05/03/17 14:30 67 20 73/41 (52) 98 Nasal Cannula 4 05/03/17 14:15 70 22 79/42 (54) 96 Nasal Cannula 4 05/03/17 14:00 65 26 75/37 (50) 96 Aerosol Mask 05/03/17 13:45 69 24 76/41 (53) 92 Aerosol Mask 05/03/17 13:32 97.5 74 26 96/49 (65) 97 Simple Mask 6 I/O 05/03/17 05/03/17 05/03/17 05/04/17 05/04/17 05/04/17 07:00 15:00 23:00 07:00 15:00 23:00 Intake Total 0 ml 1500 ml 1760 ml 480 ml Output Total 20 ml Balance 0 ml 1480 ml 1760 ml 480 ml Intake Oral 0 ml 960 ml 480 ml IV Total 800 ml Other 1500 ml Estimated Blood Loss 20 ml # Voids 4 5 2 # Bowel Movements 0 1 Result Diagram: 05/04/17 0511 05/04/17 0511 Imaging Last 24 hours Impressions Hip and Pelvis X-Ray 05/03/17 1212 Signed Impressions: Service Date/Time: Wednesday, May 03, 2017 15:36 - CONCLUSION: Right hip arthroplasty in good position. Clint Harrell Jr., MD Objective Remarks RLE: dressings clean and dry. intact. +CKS. Calf is soft and nontender. Assessment & Plan Ortho Post Op Day #: 1 Problem List: Assessment and Plan 1) Right Hip Hemiarthroplasty - POD 1 -WBAT -posterior hip precautions -CKS while in bed -Daily dressing changes POD 2 with [facility] - for SNF placement -ortho cleared for DC when stable and DC arrangements made -f/u with [facility] or [facility] in 2 weeks [place] May 04, 2017 10:01
--- NOTE | 2017-05-04 11:17 | HHI.PR ---
Subjective Remarks Patient seen and examined this morning. Temperature 97.6, pulse 80, rest her rate 18, blood pressure 118/55, pulse ox 99 on room air. Status post right hip hemiarthroplasty. Denies any pain at this time. Dressing is clean and dry and intact. Pending discharge likely to custodial facility. Objective Vitals Vital Signs Date Time Temp Pulse Resp B/P (MAP) Pulse Ox O2 Delivery O2 Flow Rate FiO2 05/04/17 07:49 97.6 80 18 118/55 (76) 99 05/04/17 04:00 97.3 73 18 107/48 (67) 95 05/04/17 00:00 97.4 72 17 106/48 (67) 96 05/03/17 20:00 95 Nasal Cannula 3.00 05/03/17 20:00 96.8 67 16 99/45 (63) 95 05/03/17 15:45 66 18 99/64 (76) 95 Nasal Cannula 3 05/03/17 15:30 97.6 65 18 123/90 (101) 96 Nasal Cannula 3 05/03/17 15:15 64 18 79/56 (64) 93 Nasal Cannula 3 05/03/17 15:00 62 18 81/43 (56) 94 Nasal Cannula 3 05/03/17 14:45 70 20 76/42 (53) 95 Nasal Cannula 3 05/03/17 14:30 67 20 73/41 (52) 98 Nasal Cannula 4 05/03/17 14:15 70 22 79/42 (54) 96 Nasal Cannula 4 05/03/17 14:00 65 26 75/37 (50) 96 Aerosol Mask 05/03/17 13:45 69 24 76/41 (53) 92 Aerosol Mask 05/03/17 13:32 97.5 74 26 96/49 (65) 97 Simple Mask 6 I/O 05/03/17 05/03/17 05/03/17 05/04/17 05/04/17 05/04/17 07:00 15:00 23:00 07:00 15:00 23:00 Intake Total 0 ml 1500 ml 1760 ml 480 ml Output Total 20 ml Balance 0 ml 1480 ml 1760 ml 480 ml Intake Oral 0 ml 960 ml 480 ml IV Total 800 ml Other 1500 ml Estimated Blood Loss 20 ml # Voids 4 5 2 # Bowel Movements 0 1 Result Diagram: 05/04/17 0511 05/04/17 0511 Imaging Last Impressions Hip and Pelvis X-Ray 05/03/17 1212 Signed Impressions: Service Date/Time: Wednesday, May 03, 2017 15:36 - CONCLUSION: Right hip arthroplasty in good position. Clint Harrell Jr., MD Femur X-Ray 05/02/17 0000 Signed Impressions: Service Date/Time: May 13:40 - CONCLUSION: Right subcapital hip fracture.. Sarthak Ward MD Chest X-Ray 05/02/17 0000 Signed Impressions: Service Date/Time: May 14:11 - CONCLUSION: No acute disease. Efraín Hodges MD Objective Remarks GEN: Well-developed, well-nourished patient. No acute distress. CV: Regular rate and rhythm without obvious murmurs LUNGS: Clear to auscultation bilaterally. Normal respiratory effort. No wheezes , rales, rhonchi. GI: Soft, nontender, nondistended. No palpable masses. Bowel sounds WNL. EXT: No edema. RLE: dressings clean and dry. intact. +CKS. Calf is soft and nontender. NEURO/PSYCH: Afocal. Awake, alert, and oriented x3. Appropriate insight and judgment. Procedures 05/03/17: Right hip hemiarthroplasty Medications and IVs Current Medications Medications (Trade) Dose Ordered Sig/Peng Route Start Time Stop Time Status Last Admin Sodium Chloride 1,000 ml @ 100 mls/hr Q10H IV 05/02/17 16:00 05/02/17 16:00 (NS Flush) 2 ml UNSCH PRN IV FLUSH 05/02/17 15:15 (NS Flush) 2 ml BID IV FLUSH 05/02/17 21:00 05/03/17 20:52 (Tylenol) 650 mg Q4H PRN PO 05/02/17 16:00 (Zofran Inj) 4 mg Q6H PRN IVP 05/02/17 16:00 (Narcan Inj) 0.4 mg UNSCH PRN IV PUSH 05/02/17 15:15 (Senokot) 17.2 mg Q12H PRN PO 05/02/17 16:00 05/04/17 07:46 (Symbicort 80-4.5 Mcg Inh) 2 puff Q12HR INH 05/03/17 09:00 05/04/17 07:51 (Synthroid) 112 mcg DAILY@0600 PO 05/03/17 06:00 05/04/17 05:50 (Isoptin Sr) 120 mg DAILY PO 05/03/17 09:00 05/03/17 08:45 (Isoptin Sr) 180 mg DAILY PO 05/03/17 09:00 05/03/17 08:45 (risperDAL) 3 mg HS PO 05/03/17 21:00 05/03/17 20:52 (Cozaar) 50 mg DAILY PO 05/03/17 09:00 05/03/17 08:45 (Microzide) 12.5 mg DAILY PO 05/03/17 09:00 Lactated Ringer's 1,000 ml @ 30 mls/hr Q24H PRN IV 05/03/17 02:15 05/06/17 02:14 05/03/17 04:57 Sodium Chloride 500 ml @ 30 mls/hr [id number] PRN IV 05/03/17 02:15 05/06/17 02:14 (Lopressor) 25 mg APPRAISER TIMBER PRN PO 05/03/17 02:15 05/06/17 02:14 (Betadine 5% Antisepsis Kit) 1 applic APPRAISER TIMBER PRN EACH NARE 05/03/17 02:15 05/06/17 02:14 (Chlorhexidine 2% Cloth) 3 pack APPRAISER TIMBER PRN TOPICAL 05/03/17 02:15 05/06/17 02:14 (Lovenox Inj) 30 mg Q24H SQ 05/04/17 12:30 ([place] 7.5-325 Mg) 1 tab Q3H PRN PO 05/03/17 12:15 (Morphine Inj) 3 mg Q3H PRN IV PUSH 05/03/17 12:15 (Vitamin D3) 5,000 units DAILY PO 05/04/17 09:00 05/04/17 07:46 Miscellaneous Information ALL NURSING DEPARTME... UNSCH PRN .XX 05/03/17 13:34 05/04/17 13:33 (Proamatine) 5 mg TID@07,12,17 PRN PO 05/03/17 14:45 A/P Problem List: (1) COPD (chronic obstructive pulmonary disease) ICD Code: J44.9 - Chronic obstructive pulmonary disease, unspecified (2) Hypertension ICD Code: I10 - Essential (primary) hypertension (3) Bipolar disorder ICD Code: F31.9 - Bipolar disorder, unspecified (4) Hypothyroidism ICD Code: E03.9 - Hypothyroidism, unspecified (5) Hip fracture, right ICD Code: S72.001A - Fracture of unspecified part of neck of right femur, initial encounter for closed fracture Status: Acute Assessment and Plan 71-year-old female admitted secondary to right hip fracture, status post right hip hemiarthroplasty Hypotension One-time 10 mg midodrine provided 500 mL bolus of normal saline provided Parameters placed on chronic blood pressure medications Continue midodrine 5 mg every 6 hours as needed for any recurrence of hypotension Status post right hip fracture repair PT Continue pain treatment as needed Orthopedic surgeon following, cleared for discharge to custodial facility COPD No exacerbation Continue baseline treatments Follow clinically Hypertension Continue baseline treatment Monitor blood pressures Hypothyroidism Follows as an outpatient Continue baseline treatment Bipolar disorder Continue baseline treatment No evidence of exacerbation DVT prophylaxis Per discretion of orthopedic surgeon Discharge Planning Anticipated discharge to custodial facility Problem Qualifiers (1) Hip fracture, right: Qualified Codes: S72.001A - Fracture of unspecified part of neck of right femur , initial encounter for closed fracture Robby Courtney MD, R3 May 04, 2017 11:17
[2017-05-04] MEDS: ENOXAPARIN SODIUM 30 MG/0.3 ML SYRINGE SQ SCH (12:16)
[2017-05-04 12:18] VITALS: BP 156/71; PULSE 96; RESP 17; TEMP 99.7; O2SAT 94
[2017-05-04 15:39] VITALS: BP 141/71; PULSE 89; RESP 17; TEMP 98.1; O2SAT 95
[2017-05-04] MEDS: risperiDONE 3 MG TAB PO SCH (19:34)
[2017-05-04 20:00] VITALS: BP 142/69; PULSE 95; RESP 17; TEMP 98.3; O2SAT 97
[2017-05-05] VITALS: BP 148/63; PULSE 93; RESP 16; TEMP 99; O2SAT 94
[2017-05-05 03:58] VITALS: BP 136/71; PULSE 90; RESP 17; TEMP 98.6; O2SAT 95
[2017-05-05] MEDS: LEVOTHYROXINE SODIUM 112 MCG TAB PO SCH (05:37)
[2017-05-05] MEDS: BUDESONIDE-FORMOTEROL 80/4.5 MCG INHALER INH SCH (07:25)
[2017-05-05] MEDS: VERAPAMIL HCL 120 MG SUSTAINED RELEASE TAB PO SCH (07:26)
[2017-05-05] MEDS: VERAPAMIL HCL 180 MG SUSTAINED RELEASE TAB PO SCH (07:27)
[2017-05-05] MEDS: CHOLECALCIFEROL (VIT D3) 5000 UNIT CAP PO SCH (07:27)
[2017-05-05] MEDS: HYDROCHLOROTHIAZIDE 12.5 MG CAP PO SCH (07:27)
[2017-05-05] MEDS: LOSARTAN 50 MG TAB PO SCH (07:28)
[2017-05-05] MEDS: SODIUM CHLORIDE 0.9% FLUSH 10 ML FLUSH IV FLUSH SCH (07:29)
[2017-05-05 08:00] VITALS: BP 155/72; PULSE 88; RESP 18; TEMP 97.5; O2SAT 95
[2017-05-05 10:14] VITALS: O2SAT 95
--- NOTE | 2017-05-05 11:02 | PD.ORT.PN ---
Subjective Post Op Day #: 2 Subjective Remarks Patient OOB in chair with no pain to the right hip. Family at bedside. Objective Vitals Vital Signs Date Time Temp Pulse Resp B/P (MAP) Pulse Ox O2 Delivery O2 Flow Rate FiO2 05/05/17 10:14 95 Nasal Cannula 3.00 05/05/17 08:00 97.5 88 18 155/72 (99) 95 05/05/17 03:58 98.6 90 17 136/71 (92) 95 05/05/17 00:00 99.0 93 16 148/63 (91) 94 05/04/17 20:00 98.3 95 17 142/69 (93) 97 05/04/17 15:39 98.1 89 17 141/71 (94) 95 05/04/17 12:18 99.7 96 17 156/71 (99) 94 I/O 05/04/17 05/04/17 05/04/17 05/05/17 05/05/17 05/05/17 07:00 15:00 23:00 07:00 15:00 23:00 Intake Total 480 ml 5480 ml 360 ml Balance 480 ml 5480 ml 360 ml Intake Oral 480 ml 5480 ml 360 ml # Voids 2 10 4 # Bowel Movements 1 4 Result Diagram: 05/04/17 0511 05/04/17 0511 Imaging Last 24 hours Impressions Hip and Pelvis X-Ray 05/03/17 1212 Signed Impressions: Service Date/Time: Wednesday, May 03, 2017 15:36 - CONCLUSION: Right hip arthroplasty in good position. Clint Harrell Jr., MD Objective Remarks RLE: dressings clean and dry. intact. Calf is soft and nontender. + NVI. + SILT Assessment & Plan Ortho Post Op Day #: 2 Problem List: Assessment and Plan 1) Right Hip Hemiarthroplasty - POD 2 -WBAT -posterior hip precautions -CKS while in bed -Daily dressing changes -CM for SNF placement ([facility]) -ortho cleared for DC when stable and DC arrangements made -f/u with [facility] or [facility] in 2 weeks [place] May 05, 2017 11:02
[2017-05-05 11:47] VITALS: BP 147/55; PULSE 74; RESP 18; TEMP 96.7; O2SAT 98
--- NOTE | 2017-05-05 12:15 | HHI.PR ---
Subjective Remarks Mrs. Masters is a 71 year old female. She came in secondary to a fall which resulted in a right hip fracture. Surgical repair of this hip fractures done today and I'm seeing this patient postop. Underlying medical conditions are COPD, hypertension, hypothyroidism, and bipolar disorder. When seen postop patient is having some problems with low blood pressure. She had her blood pressure medications provided this morning, at that time she did not have hypotension. The hypotension is likely a result of blood pressure medicines in her system combined with anesthesia and pain treatments. Patient is asymptomatic in regards to the hypotension. No other complaints. She does not have any exacerbation of her COPD. Her only previous surgery reported his a hysterectomy. 2-3Patient seen and examined this morning. Temperature 97.6, pulse 80, rest her rate 18, blood pressure 118/55, pulse ox 99 on room air. Status post right hip hemiarthroplasty. Denies any pain at this time. Dressing is clean and dry and intact. Pending discharge likely to intermediate facility. 2-4 WANTS TO GO TO REHAB NEEDS TO STOP SMOKING DC TO SNF TODAY WHEN BED AVAILABLE [facility] RN AND PT AND FAMILY CLEARED BY ORTHO FOR REHAB Objective Vitals Vital Signs Date Time Temp Pulse Resp B/P (MAP) Pulse Ox O2 Delivery O2 Flow Rate FiO2 05/05/17 11:47 96.7 74 18 147/55 (85) 98 05/05/17 10:14 95 Nasal Cannula 3.00 05/05/17 08:00 97.5 88 18 155/72 (99) 95 05/05/17 03:58 98.6 90 17 136/71 (92) 95 05/05/17 00:00 99.0 93 16 148/63 (91) 94 05/04/17 20:00 98.3 95 17 142/69 (93) 97 05/04/17 15:39 98.1 89 17 141/71 (94) 95 05/04/17 12:18 99.7 96 17 156/71 (99) 94 I/O 05/04/17 05/04/17 05/04/17 05/05/17 05/05/17 05/05/17 07:00 15:00 23:00 07:00 15:00 23:00 Intake Total 480 ml 5480 ml 360 ml Balance 480 ml 5480 ml 360 ml Intake Oral 480 ml 5480 ml 360 ml # Voids 2 10 4 # Bowel Movements 1 4 Result Diagram: 05/04/17 0511 05/04/17 0511 Other Results Laboratory Tests Test 05/02/17 14:30 05/02/17 14:40 05/03/17 19:46 05/04/17 05:11 White Blood Count 12.4 TH/MM3 10.1 TH/MM3 Red Blood Count 4.84 MIL/MM3 3.88 MIL/MM3 Hemoglobin 14.4 GM/DL 12.0 GM/DL Hematocrit 42.7 % 34.4 % Mean Corpuscular Volume 88.2 FL 88.8 FL Mean Corpuscular Hemoglobin 29.6 PG 31.0 PG Mean Corpuscular Hemoglobin Concent 33.6 % 34.9 % Red Cell Distribution Width 13.5 % 14.2 % Platelet Count 216 TH/MM3 183 TH/MM3 Mean Platelet Volume 8.6 FL 8.4 FL Neutrophils (%) (Auto) 76.2 % 76.9 % Lymphocytes (%) (Auto) 16.0 % 15.2 % Monocytes (%) (Auto) 3.6 % 6.2 % Eosinophils (%) (Auto) 0.2 % 1.2 % Basophils (%) (Auto) 4.0 % 0.5 % Neutrophils # (Auto) 9.5 TH/MM3 7.7 TH/MM3 Lymphocytes # (Auto) 2.0 TH/MM3 1.5 TH/MM3 Monocytes # (Auto) 0.4 TH/MM3 0.6 TH/MM3 Eosinophils # (Auto) 0.0 TH/MM3 0.1 TH/MM3 Basophils # (Auto) 0.5 TH/MM3 0.0 TH/MM3 CBC Comment DIFF FINAL DIFF FINAL Differential Comment Prothrombin Time 9.5 SEC Prothromb Time International Ratio 0.9 RATIO Activated Partial Thromboplast Time 23.3 SEC Blood Urea Nitrogen 21 MG/DL 10 MG/DL Creatinine 0.98 MG/DL 0.74 MG/DL Random Glucose 139 MG/DL 92 MG/DL Calcium Level 9.6 MG/DL 8.3 MG/DL Magnesium Level 2.1 MG/DL Sodium Level 137 MEQ/L 136 MEQ/L Potassium Level 3.7 MEQ/L 3.6 MEQ/L Chloride Level 105 MEQ/L 105 MEQ/L Carbon Dioxide Level 25.2 MEQ/L 23.4 MEQ/L Anion Gap 7 MEQ/L 8 MEQ/L Estimat Glomerular Filtration Rate 56 ML/MIN 78 ML/MIN Urine Collection Type CLEAN CATCH Urine Color YELLOW Urine Turbidity CLEAR Urine pH 6.0 Urine Specific Spivey 1.008 Urine Protein NEG mg/dL Urine Glucose (UA) NEG mg/dL Urine Ketones NEG mg/dL Urine Occult Blood NEG Urine Nitrite NEG Urine Bilirubin NEG Urine Leukocyte Esterase NEG Urine Squamous Epithelial Cells 6-8 /hpf Urine Amorphous Sediment FEW Urine Bacteria RARE /hpf Microscopic Urinalysis Comment CULT NOT INDICATED 25-Hydroxy Vitamin D Total 9.1 ng/ML Total Protein 5.7 GM/DL Albumin 2.6 GM/DL Alkaline Phosphatase 88 U/L Aspartate Amino Transf (AST/SGOT) 26 U/L Alanine Aminotransferase (ALT/SGPT) 16 U/L Total Bilirubin 0.3 MG/DL Imaging Last Impressions Hip and Pelvis X-Ray 05/03/17 1212 Signed Impressions: Service Date/Time: Wednesday, May 03, 2017 15:36 - CONCLUSION: Right hip arthroplasty in good position. Clint Harrell Jr., MD Femur X-Ray 05/02/17 0000 Signed Impressions: Service Date/Time: May 13:40 - CONCLUSION: Right subcapital hip fracture.. Sarthak Ward MD Chest X-Ray 05/02/17 0000 Signed Impressions: Service Date/Time: May 14:11 - CONCLUSION: No acute disease. Efraín Hodges MD Objective Remarks GENERAL: Awake alert oriented 3 talkative and cooperative SKIN: Warm and dry. HEAD: Atraumatic. Normocephalic. EYES: Pupils equal and round. No scleral icterus. No injection or drainage. Extraocular muscles intact ENT: No nasal bleeding or discharge. Mucous membranes pink and moist. Tongue is midline NECK: Trachea midline. No JVD. Supple CARDIOVASCULAR: Regular rate and rhythm. S1 and S2 no S3 or S4 RESPIRATORY: No accessory muscle use. Clear to auscultation. Breath sounds equal bilaterally. GASTROINTESTINAL: Abdomen soft, non-tender, nondistended. Hepatic and splenic margins not palpable. MUSCULOSKELETAL: Extremities without clubbing, cyanosis, or edema. No obvious deformities. Right hip is dressed NEUROLOGICAL: Awake and alert. No obvious cranial nerve deficits. Motor grossly within normal limits. 4 out of 5 muscle strength in the arms and legs. Normal speech. PSYCHIATRIC: Appropriate mood and affect; insight and judgment normal. Procedures 05/03/17: Right hip hemiarthroplasty Medications and IVs Current Medications Sodium Chloride 1,000 ml @ 100 mls/hr Q10H IV Last administered on 05/02/17at 16 :00; Start 05/02/17 at 16:00 Sodium Chloride (NS Flush) 2 ml UNSCH PRN IV FLUSH FLUSH AFTER USING IV ACCESS ; Start 05/02/17 at 15:15 Sodium Chloride (NS Flush) 2 ml BID IV FLUSH Last administered on 05/05/17at 07: 29; Start 05/02/17 at 21:00 Acetaminophen (Tylenol) 650 mg Q4H PRN PO TEMP > 100.4; Start 05/02/17 at 16:00 Ondansetron HCl (Zofran Inj) 4 mg Q6H PRN IVP NAUSEA OR VOMITING; Start at 16:00 Naloxone HCl (Narcan Inj) 0.4 mg UNSCH PRN IV PUSH SEE LABEL COMMENTS; Start at 15:15 Sennosides (Senokot) 17.2 mg Q12H PRN PO Moderate constipation Last administered on 05/04/17at 07:46; Start 05/02/17 at 16:00 Budesonide/ Formoterol Fumarate (Symbicort 80-4.5 Mcg Inh) 2 puff Q12HR INH Last administered on 05/05/17at 07:25; Start 05/03/17 at 09:00 Levothyroxine Sodium (Synthroid) 112 mcg DAILY@0600 PO Last administered on 05/05at 05:37; Start 05/03/17 at 06:00 Risperidone (risperDAL) 3 mg HS PO ; Start 05/02/17 at 23:00; Stop 05/02/17 at 23: 02; Status DC Non-Formulary Medication 1 tab DAILY PO ; Start 05/03/17 at 09:00; Stop 05/03/17 at 09:00; Status DC Verapamil HCl (Isoptin Sr) 120 mg DAILY PO Last administered on 05/05/17at 07:26 ; Start 05/03/17 at 09:00 Risperidone (risperDAL) 3 mg ONCE ONCE PO ; Start 05/02/17 at 22:45; Stop at 23:02; Status DC Verapamil HCl (Isoptin Sr) 180 mg DAILY PO Last administered on 05/05/17at 07:27 ; Start 05/03/17 at 09:00 Risperidone (risperDAL) 3 mg HS PO Last administered on 05/04/17at 19:34; Start 05/03/17 at 21:00 Losartan Potassium (Cozaar) 50 mg DAILY PO Last administered on 05/05/17at 07:28 ; Start 05/03/17 at 09:00 Hydrochlorothiazide (Microzide) 12.5 mg DAILY PO Last administered on 05/05/17at 07:27; Start 05/03/17 at 09:00 Risperidone (risperDAL) 3 mg ONCE ONCE PO Last administered on 05/02/17at 23:18 ; Start 05/02/17 at 23:15; Stop 05/02/17 at 23:16; Status DC Lactated Ringer's 1,000 ml @ 30 mls/hr Q24H PRN IV SEE LABEL COMMENTS Last administered on 05/03/17at 04:57; Start 05/03/17 at 02:15; Stop 05/06/17 at 02:14 Sodium Chloride 500 ml @ 30 mls/hr [id number] PRN IV SEE LABEL COMMENTS; Start 05/03/17 at 02:15; Stop 05/06/17 at 02:14 Metoprolol Tartrate (Lopressor) 25 mg PUG MACHINE OPERATOR PRN PO SEE LABEL COMMENTS; Start 05/03/17 at 02:15; Stop 05/06/17 at 02:14 Povidone Iodine (Betadine 5% Antisepsis Kit) 1 applic PUG MACHINE OPERATOR PRN EACH NARE SEE LABEL COMMENTS; Start 05/03/17 at 02:15; Stop 05/06/17 at 02:14 Chlorhexidine Gluconate (Chlorhexidine 2% Cloth) 3 pack PUG MACHINE OPERATOR PRN TOPICAL SEE LABEL COMMENTS; Start 05/03/17 at 02:15; Stop 05/06/17 at 02:14 Tranexamic Acid 1125 mg/Sodium Chloride 111.25 ml @ 200 mls/ hr ONCE IV Last administered on 05/03/17at 12:20; Start 05/03/17 at 10:00; Stop 05/03/17 at 16:00; Status DC Cefazolin Sodium/ Dextrose 50 ml @ As Directed STK-MED ONCE .ROUTE ; Start at 10:46; Stop 05/03/17 at 10:47; Status DC Vancomycin HCl (Vancomycin Inj) 1,000 mg STK-MED ONCE .ROUTE Last administered on 05/03/17at 12:23; Start 05/03/17 at 10:46; Stop 05/03/17 at 10:47; Status DC Clindamycin Phosphate (Cleocin Inj) 600 mg STK-MED ONCE .ROUTE Last administered on 05/03/17at 12:23; Start 05/03/17 at 10:46; Stop 05/03/17 at 10:47; Status DC Fentanyl Citrate (fentaNYL INJ) 250 mcg STK-MED ONCE .ROUTE ; Start 05/03/17 at 11:57; Stop 05/03/17 at 11:58; Status DC Cefazolin Sodium 2000 mg/Sodium Chloride 100 ml @ 100 mls/hr Q6H IV Last administered on 05/04/17at 05:50; Start 05/03/17 at 17:00; Stop 05/04/17 at 05:59; Status DC Miscellaneous Information (Post-op Orders (for Pharmacy)) STAT ONCE XX ; Start 05/03/17 at 13:00; Stop 05/03/17 at 13:01; Status DC Enoxaparin Sodium (Lovenox Inj) 30 mg Q24H SQ Last administered on 05/04/17at 12: 16; Start 05/04/17 at 12:30 Acetaminophen/ Hydrocodone Bitart (Eustace 7.5-325 Mg) 1 tab Q3H PRN PO PAIN 3< 10; Start 05/03/17 at 12:15 Morphine Sulfate (Morphine Inj) 3 mg Q3H PRN IV PUSH break thru pain; Start 05/03/17 at 12:15 Ergocalciferol (Drisdol) 50,000 units ONCE ONCE PO ; Start 05/03/17 at 12:30; Stop 05/03/17 at 12:31; Status DC Cholecalciferol (Vitamin D3) 5,000 units DAILY PO Last administered on at 07:27; Start 05/04/17 at 09:00 Vasopressin (Pitressin Inj) 20 units STK-MED ONCE .ROUTE ; Start 05/03/17 at 12: 27; Stop 05/03/17 at 12:28; Status DC Albuterol Sulfate (*ALBUTEROL NEB PERIprocedure ONLY) 2.5 mg STK-MED ONCE NEB Last administered on 05/03/17at 13:41; Start 05/03/17 at 13:41; Stop 05/03/17 at 13: 42; Status DC Miscellaneous Information ALL NURSING DEPARTME... UNSCH PRN .XX SEE LABEL COMMENTS; Start 05/03/17 at 13:34; Stop 05/04/17 at 13:33; Status DC Midodrine (Proamatine) 5 mg TID@07,12,17 PRN PO Systolic BP less than 90 mmHg; Start 05/03/17 at 14:45 Midodrine (Proamatine) 10 mg ONCE ONCE PO Last administered on 05/03/17at 15:18 ; Start 05/03/17 at 14:45; Stop 05/03/17 at 14:51; Status DC A/P Problem List: (1) COPD (chronic obstructive pulmonary disease) ICD Code: J44.9 - Chronic obstructive pulmonary disease, unspecified (2) Hypertension ICD Code: I10 - Essential (primary) hypertension (3) Bipolar disorder ICD Code: F31.9 - Bipolar disorder, unspecified (4) Hypothyroidism ICD Code: E03.9 - Hypothyroidism, unspecified (5) Hip fracture, right ICD Code: S72.001A - Fracture of unspecified part of neck of right femur, initial encounter for closed fracture Status: Acute Assessment and Plan Assessment and Plan 71-year-old female admitted secondary to right hip fracture, status post right hip hemiarthroplasty Hypotension One-time 10 mg midodrine provided 500 mL bolus of normal saline provided Parameters placed on chronic blood pressure medications Continue midodrine 5 mg every 6 hours as needed for any recurrence of hypotension Status post right hip fracture repair PT Continue pain treatment as needed Orthopedic surgeon following, cleared for discharge to intermediate facility Cleared by orthopedic surgeon COPD No exacerbation Continue baseline treatments Follow clinically Hypertension Continue baseline treatment Monitor blood pressures Hypothyroidism Follows as an outpatient Continue baseline treatment Bipolar disorder Continue baseline treatment No evidence of exacerbation DVT prophylaxis Per discretion of orthopedic surgeon Discharge Planning Anticipated discharge to intermediate facility Discharge Planning Discharge to SNF today Problem Qualifiers (1) Hip fracture, right: Qualified Codes: S72.001A - Fracture of unspecified part of neck of right femur , initial encounter for closed fracture Michael Chase DO May 05, 2017 12:15
--- NOTE | 2017-05-05 12:19 | HHI.DS ---
Discharge Summary Admission Date May 02, 2017 at 14:58 Discharge Date: May 05, 2017 Admitting Diagnosis right hip fracture (1) COPD (chronic obstructive pulmonary disease) ICD Code: J44.9 - Chronic obstructive pulmonary disease, unspecified Diagnosis: Secondary (2) Hypertension ICD Code: I10 - Essential (primary) hypertension Diagnosis: Secondary (3) Bipolar disorder ICD Code: F31.9 - Bipolar disorder, unspecified Diagnosis: Secondary (4) Hypothyroidism ICD Code: E03.9 - Hypothyroidism, unspecified Diagnosis: Secondary (5) Hip fracture, right ICD Code: S72.001A - Fracture of unspecified part of neck of right femur, initial encounter for closed fracture Diagnosis: Principal Status: Acute Procedures 05/03/17: Right hip hemiarthroplasty Brief History - From Admission Mrs. Masters is a 71 year old female. She came in secondary to a fall which resulted in a right hip fracture. Surgical repair of this hip fractures done today and I'm seeing this patient postop. Underlying medical conditions are COPD, hypertension, hypothyroidism, and bipolar disorder. When seen postop patient is having some problems with low blood pressure. She had her blood pressure medications provided this morning, at that time she did not have hypotension. The hypotension is likely a result of blood pressure medicines in her system combined with anesthesia and pain treatments. Patient is asymptomatic in regards to the hypotension. No other complaints. She does not have any exacerbation of her COPD. Her only previous surgery reported his a hysterectomy. CBC/BMP: 05/04/17 0511 05/04/17 0511 Significant Findings Laboratory Tests Test 05/02/17 14:30 05/02/17 14:40 05/03/17 19:46 05/04/17 05:11 White Blood Count 12.4 TH/MM3 (4.0-11.0) Neutrophils (%) (Auto) 76.2 % (16.0-70.0) 76.9 % (16.0-70.0) Basophils (%) (Auto) 4.0 % (0.0-2.0) Neutrophils # (Auto) 9.5 TH/MM3 (1.8-7.7) Basophils # (Auto) 0.5 TH/MM3 (0-0.2) Prothrombin Time 9.5 SEC (9.8-11.6) Activated Partial Thromboplast Time 23.3 SEC (24.3-30.1) Blood Urea Nitrogen 21 MG/DL (7-18) Random Glucose 139 MG/DL (74-106) Estimat Glomerular Filtration Rate 56 ML/MIN (>89) 78 ML/MIN (>89) Urine Squamous Epithelial Cells 6-8 /hpf (0-5) Urine Bacteria RARE /hpf (NONE) 25-Hydroxy Vitamin D Total 9.1 ng/ML (30-100) Red Blood Count 3.88 MIL/MM3 (4.00-5.30) Hematocrit 34.4 % (35.0-46.0) Total Protein 5.7 GM/DL (6.4-8.2) Albumin 2.6 GM/DL (3.4-5.0) Calcium Level 8.3 MG/DL (8.5-10.1) Imaging Last Impressions Hip and Pelvis X-Ray 05/03/17 1212 Signed Impressions: Service Date/Time: Wednesday, May 03, 2017 15:36 - CONCLUSION: Right hip arthroplasty in good position. Clint Harrell Jr., MD Femur X-Ray 05/02/17 0000 Signed Impressions: Service Date/Time: May 13:40 - CONCLUSION: Right subcapital hip fracture.. Sarthak Ward MD Chest X-Ray 05/02/17 0000 Signed Impressions: Service Date/Time: May 14:11 - CONCLUSION: No acute disease. Efraín Hodges MD PE at Discharge GENERAL: Awake alert oriented 3 talkative and cooperative SKIN: Warm and dry. HEAD: Atraumatic. Normocephalic. EYES: Pupils equal and round. No scleral icterus. No injection or drainage. Extraocular muscles intact ENT: No nasal bleeding or discharge. Mucous membranes pink and moist. Tongue is midline NECK: Trachea midline. No JVD. Supple CARDIOVASCULAR: Regular rate and rhythm. S1 and S2 no S3 or S4 RESPIRATORY: No accessory muscle use. Clear to auscultation. Breath sounds equal bilaterally. GASTROINTESTINAL: Abdomen soft, non-tender, nondistended. Hepatic and splenic margins not palpable. MUSCULOSKELETAL: Extremities without clubbing, cyanosis, or edema. No obvious deformities. Right hip is dressed NEUROLOGICAL: Awake and alert. No obvious cranial nerve deficits. Motor grossly within normal limits. 4 out of 5 muscle strength in the arms and legs. Normal speech. PSYCHIATRIC: Appropriate mood and affect; insight and judgment normal. Hospital Course Mrs. Masters is a 71 year old female. She came in secondary to a fall which resulted in a right hip fracture. Surgical repair of this hip fractures done today and I'm seeing this patient postop. Underlying medical conditions are COPD, hypertension, hypothyroidism, and bipolar disorder. When seen postop patient is having some problems with low blood pressure. She had her blood pressure medications provided this morning, at that time she did not have hypotension. The hypotension is likely a result of blood pressure medicines in her system combined with anesthesia and pain treatments. Patient is asymptomatic in regards to the hypotension. No other complaints. She does not have any exacerbation of her COPD. Her only previous surgery reported his a hysterectomy. 2-3Patient seen and examined this morning. Temperature 97.6, pulse 80, rest her rate 18, blood pressure 118/55, pulse ox 99 on room air. Status post right hip hemiarthroplasty. Denies any pain at this time. Dressing is clean and dry and intact. Pending discharge likely to custodial facility. 2-4 WANTS TO GO TO REHAB NEEDS TO STOP SMOKING DC TO SNF TODAY WHEN BED AVAILABLE [facility] RN AND PT AND FAMILY CLEARED BY ORTHO FOR REHAB Assessment and Plan 71-year-old female admitted secondary to right hip fracture, status post right hip hemiarthroplasty Hypotension One-time 10 mg midodrine provided 500 mL bolus of normal saline provided Parameters placed on chronic blood pressure medications Continue midodrine 5 mg every 6 hours as needed for any recurrence of hypotension Status post right hip fracture repair PT Continue pain treatment as needed Orthopedic surgeon following, cleared for discharge to custodial facility Cleared by orthopedic surgeon COPD No exacerbation Continue baseline treatments Follow clinically Hypertension Continue baseline treatment Monitor blood pressures Hypothyroidism Follows as an outpatient Continue baseline treatment Bipolar disorder Continue baseline treatment No evidence of exacerbation DVT prophylaxis Per discretion of orthopedic surgeon Discharge Planning Anticipated discharge to custodial facility Discharge Planning Discharge to SNF today Pt Condition on Discharge: Good Discharge Disposition: Discharge to SNF Discharge Time: > 30 minutes Discharge Instructions DIET: Follow Instructions for: Heart Healthy Diet, Diabetic Diet Speech Therapy-Diet Recommends: Regular Additional Diet Instructions: Stop smoking Activities you can perform: Weight Bearing as Terrell Follow up Referrals: Orthopedics - 2 Weeks @ [facility] with Fabricio Fairchild MD PCP Follow-up - 2 Weeks New Medications: Calcium Carbonate-Vitamin D (Calcium 600+D 200) 600-200 Mg-Unit Tab 1 TAB PO BID for Nutritional Supplement for 30 Days, #60 TAB 0 Refills Cholecalciferol (Vitamin D3) 2,000 Unit Cap 2000 UNITS PO DAILY for Nutritional Supplement, #60 CAP 0 Refills Ergocalciferol (Ergocalciferol) 50,000 Unit Cap 25834 UNITS PO Q7D for Nutritional Supplement, #8 CAP Hydrocodone-Acetaminophen (Hydrocodone-Acetaminophen) 10-325 mg Tab 1 TAB PO Q4H PRN for PAIN, #60 TAB 0 Refills Rivaroxaban (Xarelto) 10 Mg Tab 10 MG PO DAILY for Blood Clot Prevention for 14 Days, #14 TAB 0 Refills Walker/Adult/Folding (Walker/Adult/Folding) 1 Mis Mis EA .XX DIRECTED, #1 0 Refills Continued Medications: Budesonide-Formoterol Inh (Symbicort Inh) 80-4.5 Mcg/Act Aero 2 PUFF INH Q12HR for Asthma Management, #1 INHALER 0 Refills Levothyroxine (Levothyroxine) 112 Mcg Tab 112 MCG PO DAILY for Thyroid, #30 TAB 0 Refills Losartan-Hydrochlorothiazide (Losartan-Hydrochlorothiazide) 50-12.5 Mg Tab 1 TAB PO DAILY for Blood Pressure Management, #30 TAB 0 Refills Risperidone (Risperidone) 3 Mg Tab 3 MG PO HS, #30 TAB 0 Refills Verapamil ER 24 HR (Verapamil ER 24 HR) 300 Mg Cap 300 MG PO DAILY, #30 CAP 0 Refills Michael Chase DO May 05, 2017 12:19
[2017-05-05] MEDS: ENOXAPARIN SODIUM 30 MG/0.3 ML SYRINGE SQ SCH (12:50)
[2017-05-05] MEDS: SODIUM CHLOR 0.9% 1000 ML INJ 1,000 ML IV SCH (13:53)
== END 2017-05-05 14:48 | DRG 470 ==
LOC: PHEFT 13:35 → PHEDA 14:58 → N06A 18:19
PROVIDERS: ADMIT Hospitalist; ATTEND Hospitalist
PROC: 0SRR0JA Replacement of Right Hip Joint, Femoral Surface with Synthetic Substitute, Uncemented, Open Approach (ICD-10-PCS; principal; 2017-05-03 12:02)
DX: S72.011A Unspecified intracapsular fracture of right femur, initial encounter for closed fracture (principal); J44.9 Chronic obstructive pulmonary disease, unspecified; I10 Essential (primary) hypertension; F31.9 Bipolar disorder, unspecified; E03.9 Hypothyroidism, unspecified; I95.81 Postprocedural hypotension; F17.210 Nicotine dependence, cigarettes, uncomplicated; F10.10 Alcohol abuse, uncomplicated; W18.30XA Fall on same level, unspecified, initial encounter; Z88.0 Allergy status to penicillin
CPT/HCPCS: 71045; 73502; 73552; 80048; 80053; 81001; 82306; 83735; 85025; 85610; 85730; 88305; 88311; 93005; C1776; J0171; J0690; J1650; J2310; J2370; J2405; J3010; J3370; J7030; J7120; J7613; L1830

== ENCOUNTER → 2017-07-26 | Outpatient (CLI) | payer MEDICARE, OTHER ==
[~2017-07-26] MED LIST: CALCTAB19 PO; HYDR-3583 PO; LEVO112T2 PO; LOSA50TA2 PO; RISP3TAB2 PO; SYMB80AE INH; VERA300C PO; VITA2000 PO; VITA500012 PO; WALKER/ADULT/FO1 MIS; XARE10TA PO
[2017-07-26 10:52] LABS: AUTOMATED NEUTROPHIL # 5.1 TH/MM3 (1.8-7.7); BASOPHIL # 0.1 TH/MM3 (0-0.2); EOSINOPHIL # 0.1 TH/MM3 (0-0.4); EOSINOPHIL % 0.7 % (0.0-4.0); HEMATOCRIT 43.7 % (35.0-46.0); HEMOGLOBIN 14.7 GM/DL (11.6-15.3); LYMPH % 30.3 % (9.0-44.0); LYMPHOCYTE # 2.5 TH/MM3 (1.0-4.8); MEAN CELL VOLUME 86.6 FL (80.0-100.0); MEAN CORPUSCULAR HEMOGLOBIN 29.2 PG (27.0-34.0); MEAN CORPUSCULAR HGB CONC 33.7 % (32.0-36.0); MONO % 6.5 % (0.0-8.0); MONOCYTE # 0.5 TH/MM3 (0-0.9); NEUT % 61.5 % (16.0-70.0); PLATELET COUNT 190 TH/MM3 (150-450); RED BLOOD COUNT 5.04 MIL/MM3 (4.00-5.30); RED CELL DISTRIBUTION WIDTH 16.3 % (11.6-17.2); WHITE BLOOD COUNT 8.3 TH/MM3 (4.0-11.0)
[2017-07-26 11:04] LABS: BACTERIA, URINE OCC /hpf; BILIRUBIN, URINE NEG (NEG); BLOOD, URINE NEG (NEG); GLUCOSE,URINE NEG (NEG); KETONE, URINE NEG (NEG); MUCUS URINE FEW /lpf (OCC); NITRITE,URINE NEG (NEG); SQUAMOUS EPITHELIAL CELL URINE 4 /hpf (0-5); URINE COLOR YELLOW (YELLW/STRAW); URINE LEUKOCYTE ESTERASE NEG (NEG)
[2017-07-26 11:22] LABS: ALBUMIN 3.4 GM/DL (3.4-5.0); BICARBONATE 25.5 MEQ/L (21.0-32.0); BLOOD UREA NITROGEN 14 MG/DL (7-18); CALCIUM 9.2 MG/DL (8.5-10.1); CHLORIDE 105 MEQ/L (98-107); GLUCOSE,FASTING 92 MG/DL (74-99); SODIUM (NA) 139 MEQ/L (136-145)
[2017-07-26 11:36] LABS: ALT (GPT) 15 U/L (10-53); AST (GOT) 16 U/L (15-37); CHOLESTEROL 188 MG/DL (120-200); GLOMERULAR FILTRATION RATE 62 ML/MIN (>89); TRIGLYCERIDES 188 MG/DL (42-150)
[2017-07-26 11:42] LABS: ALKALINE PHOSPHATASE 106 U/L (45-117); CHOLESTEROL/ HDL RATIO 4.19 RATIO; HDL CHOLESTEROL 44.8 MG/DL (40.0-60.0); LDL CHOLESTEROL 106 MG/DL (0-99); TOTAL BILIRUBIN ADULT 0.4 MG/DL (0.2-1.0); TOTAL PROTEIN 7.5 GM/DL (6.4-8.2)
[2017-07-26 15:35] LABS: HEMOGLOBIN A1C 5.3 % (4.3-6.0)
== END ==
LOC: CLAB 10:29
PROVIDERS: ATTEND Nurse Practitioner Family
DX: R53.83 Other fatigue (principal); I10 Essential (primary) hypertension; E11.9 Type 2 diabetes mellitus without complications; E55.9 Vitamin D deficiency, unspecified; E78.5 Hyperlipidemia, unspecified; E03.9 Hypothyroidism, unspecified
CPT/HCPCS: 36415; 80053; 80061; 81001; 82043; 82306; 83036; 84443; 85025